=== PATIENT | female | born 1970 | race Caucasian/White ===

== ENCOUNTER → 2016-10-24 | Outpatient (CLI) | payer OTHER ==
[~2016-10-24] MED LIST: CALCIUM 600 +1 EAC1 PO
== END ==
LOC: RAD 01:01
DX: N63 Unspecified lump in breast (principal); N60.09 Solitary cyst of unspecified breast

== ENCOUNTER → 2020-04-09 | Outpatient (CLI) | payer OTHER | LOC: LAB 12:27 | PROVIDERS: ATTEND Family Medicine | DX: R07.89 Other chest pain (principal); R51 Headache; R53.83 Other fatigue; Z20.828 Contact with and (suspected) exposure to other viral communicable diseases ==

== ENCOUNTER → 2020-05-29 | Outpatient (CLI) | payer BC, OTHER | LOC: LAB 08:07 | PROVIDERS: ATTEND Family Medicine | DX: U07.1 COVID-19 (principal) ==